=== PATIENT | male | born 1995 | race Caucasian/White ===

== ENCOUNTER 2017-08-06 00:50 | Emergency (ER) | payer SELFPAY ==
[~2017-08-06] VITALS: Ht 180.3 cm; Wt 118.0 kg
[2017-08-06 01:03] VITALS: BP 135/79; PULSE 97; RESP 18; TEMP 98.7; O2SAT 97
--- NOTE | 2017-08-06 01:37 | RADRPT ---
EXAM DATE/TIME: 08/06/2017 01:19 [place] COMPARISON: No previous studies available for comparison. INDICATIONS : Left knee pain with laceration to the patella region post fall. MEDICAL HISTORY : None. SURGICAL HISTORY : None. ENCOUNTER: Initial ACUITY: 1 day PAIN SCORE: 8/10 LOCATION: Left knee FINDINGS: Four view examination of the left knee demonstrates no evidence of fracture or dislocation. Bony min eralization is normal. The articular surfaces are intact. The suprapatellar soft tissues have a nor mal configuration. There is laceration in the pretibial region proximally. CONCLUSION: No acute bony injury Killian Ayala MD on August 06, 2017 at 1:34 Board Certified Radiologist. This report was verified electronically.
[2017-08-06] MEDS ORDERED: IBUPROFEN 800 MG TAB PO ONE (02:00)
[2017-08-06] MEDS ORDERED: IBUP1TAB7 PO (02:02)
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
== END 2017-08-06 02:29 ==
LOC: NEPD 00:50
DX: S81.012A Laceration without foreign body, left knee, initial encounter (principal); Y04.0XXA Assault by unarmed brawl or fight, initial encounter
CPT/HCPCS: 12002; 73564; 99283; E0113